=== PATIENT | female | born 2005 | race Caucasian/White ===

== ENCOUNTER 2025-06-04 12:20 | Emergency (ER) | payer SELFPAY ==
[2025-06-04 12:34] VITALS: BP 110/68; PULSE 64; RESP 16; TEMP 36.6; O2SAT 100
--- NOTE | 2025-06-04 12:45 | ED_ITS ---
HPI - Abdominal Pain General Chief Complaint: Abdominal Pain Stated Complaint: RT Side Pain Time Seen by Provider: 06/04/25 12:20 Source: patient Mode of arrival: ambulatory Limitations: no limitations History of Present Illness HPI narrative: Patient is a 20-year-old female who presents with right lower quadrant abdominal pain since yesterday. Patient has had nausea but no vomiting, diarrhea or fever. Has not taken anything for symptoms. Reports pressure in bending over helps reduce pain but standing straight up, turning or hitting bumps in the car causes more pain. Does also report urine has been bright yellow and has had frequent urination but no burning with urination or new back pain. Related Data Home Medications ?Medication ?Instructions ?Recorded ?Confirmed ?Last Taken ?Type levonorgestrel 17.5 mcg/24 hr (up 1 device intrauterine ONCE 06/04/25 06/04/25 Unknown History to 5 yrs) 19.5mg intrauterine device (Kyleena) lisdexamfetamine 10 mg capsule 10 mg PO DAILY 06/04/25 06/04/25 Unknown History (Vyvednae) semaglutide 0.25 mg or 0.5 mg (2 0.25 mg subcut WEEKLY 06/04/25 06/04/25 Unknown History mg/3 mL) subcutaneous pen injector (Ozempic) Allergies Allergy/AdvReac Type Severity Reaction Status Date / Time morphine Allergy Mild Hives Verified 06/04/25 12:38 Review of Systems Review of Systems: All systems reviewed & are unremarkable except as noted in HPI and below Constitutional: Constitutional: Denies body ache(s), Denies chills, Denies fatigue, Denies fever(s), Denies headache(s), Denies malaise and Denies weakness Eyes: Eyes: Denies blurry vision, Denies irritation and Denies loss of vision ENT: Denies otalgia, Denies headache(s), Denies nasal discharge, Denies sinus pain and Denies sore throat Cardiovascular: Cardiovascular: Denies chest pain, Denies irregular heart rhythm and Denies dyspnea Respiratory: Respiratory: Denies dyspnea Gastrointestinal: Gastrointestinal: Reports abdominal pain, Denies melena, Denies hematochezia, Denies diarrhea, Reports nausea and Denies vomiting Musculoskeletal: Musculoskeletal: Denies back pain, Denies myalgias and Denies arthralgias Integumentary/Breasts: Skin/Breast: Denies pruritus and Denies rash Neurologic: Denies headache(s), Denies loss of vision and Denies weakness Psychiatric: Psychiatric: Reports no additional psychiatric complaints Endocrine: Endocrine: Denies fatigue PMFSH Comments At time of signature, agree with nursing past medical, surgical, social and family history. There is no relevant family history pertinent to the presenting complaint. Exam Const: General: cooperative, healthy appearing, comfortable, no acute distress and well nourished Nutritional Appearance: well nourished Orientation/consciousness: patient oriented x3 Limitations: no limitations HENMT: Head: normal to inspection, normocephalic and atraumatic Ears: hearing grossly normal bilaterally and external ears normal Face/Nose/Sinus: Normal external nose present, normal facial exam and face symmetric Face and sinus: normal facial exam and face symmetric Mouth: Yes lip normal Eyes: General: appearance normal, both eyes and all related structures Alignment and Position: alignment normal and position normal Periorbital: periorbital findings normal Eyelids: eyelids normal Pupils: Equal, round and reactive pupils present EOM: EOMs intact bilaterally Neck: Neck: normal visual inspection, full ROM and supple Chest: Chest palpation & inspection: normal inspection of the chest Resp: Effort & Inspection: normal respiratory effort and able to speak in complete sentences Auscultation: clear to auscultation bilaterally Cardio: Rate: regular rate Rhythm: regular rhythm Heart sounds: S1 normal heart sound present and S2 normal heart sound present GI: Inspection: normal to inspection GI Palp: Yes abdominal tenderness, Yes Tenderness to palpation present (GI), No Guarding due to palpation present (GI) and Yes Rebound tenderness present Auscultation: normal bowel sounds Rectal Exam: deferred Skin: General skin exam: normal color and no rashes or lesions noted Neuro: General: patient oriented x3 and moves all extremities Cranial nerves: Yes Equal, round and reactive pupils present Speech: normal speech Gait exam (Neuro): Normal gait present Extrem: General: normal to inspection, full ROM and no edema Psych: Appearance: grossly normal and well kempt Mental Status: mental status grossly normal Speech and movement: Normal speech and movement present Affect: normal affect Attitude: cooperative Thought process: Normal thought process present Course Course Emergency Course: Transferred [facility] for further evaluation and workup including labs imaging to rule out appendicitis. Portions of this record may have been created with voice recognition software Level of Care: Express Care Visit Vital Signs Vital signs: Vital Signs Temperature 36.6 C 06/04/25 12:34 Pulse Rate 64 06/04/25 12:34 Respiratory Rate 16 06/04/25 12:34 Blood Pressure 110/68 06/04/25 12:34 Pulse Oximetry 100 06/04/25 12:34 Oxygen Delivery Room Air 06/04/25 12:34 Temperature 36.6 C 06/04/25 12:34 Pulse Rate 64 06/04/25 12:34 Respiratory Rate 16 06/04/25 12:34 Blood Pressure 110/68 06/04/25 12:34 Pulse Oximetry 100 06/04/25 12:34 Oxygen Delivery Room Air 06/04/25 12:34 Reviewed Transfer Transfered to: [place] Transportation: Other (Private auto) Transfer rationale: Transferred [facility] for further evaluation and workup including labs imaging to rule out appendicitis. Accepting physician: Ramakrishna JAMISON MDM - Abdominal Pain MDM Narrative Medical decision making narrative: Transferred [facility] for further evaluation and workup including labs imaging to rule out appendicitis. Differential Diagnosis Differential diagnosis: Likely abdominal pain, acute appendicitis, calculus of kidney, gastroenteritis and other (UTI) Discharge Plan Discharge Clinical Impression: Abdominal pain, right lower quadrant Patient Disposition: Acute Care Hospital Condition: Stable Patient Language: Turkish Prescriptions: No Action lisdexamfetamine [Vyvanse] 10 mg capsule 10 mg PO DAILY Ozempic 0.25 mg or 0.5 mg (2 mg/3 mL) pen injector 0.25 mg subcut WEEKLY Rx Instructions: for 4 weeks Kyleena 17.5 mcg/24 hr (5 yrs) 19.5 mg intrauterine device 1 device intrauterine ONCE Rx Instructions: as a single dose Follow-up/Referrals: PHYSICIAN,ROOFING MACHINE TENDER [Primary Care Provider] - Time of Disposition: 12:55
== END 2025-06-04 12:50 | disposition short-term general hospital (02) ==
PROVIDERS: Emergency Provider Nurse Practitioner Family
DX: R10.31 Right lower quadrant pain (principal); F90.9 Attention-deficit hyperactivity disorder, unspecified type; Z97.5 Presence of (intrauterine) contraceptive device
CPT/HCPCS: 99212; G0463

== ENCOUNTER 2025-06-04 13:15 | Emergency (ER) | payer SELFPAY ==
--- NOTE | ~2025-06-04 | US_ITS ---
EXAM: PELVIC ULTRASOUND HISTORY: Dense free fluid in the pelvis COMPARISON: None. Reference is also made to the CT examination of the abdomen and pelvis performed the same day. FINDINGS: UTERUS: 7.2 x 2.7 x 4.7cm. The endometrial complex measures 4mm. IUD in place. RIGHT OVARY: The right ovary is unremarkable in size measuring 3.9 x 2.9 x 3.3cm. Dopplerable flow is identified. Extensive free fluid in the right adnexa. 26 x 22 x 20mm focus of mixed echogenicity within the right ovary possibly a ruptured cyst. LEFT OVARY: The left ovary is unremarkable in echogenicity and size measuring 3.0 x 1.7 x 1.6 cm Dopplerable flow is identified. Extensive free fluid is identified within the right adnexa and in the posterior cul de sac. IMPRESSION: 26mm likely ruptured cyst in the right ovary with extensive free fluid within the right adnexa and th e posterior cul-de-sac. Reviewed, dictated and finalized at location A. IMPRESSION: 26mm likely ruptured cyst in the right ovary with extensive free fluid within t he right adnexa and the posterior cul-de-sac.
--- NOTE | ~2025-06-04 | CT_ITS ---
CLINICAL INDICATION: Right lower quadrant pain COMPARISON: None. TECHNIQUE: Multiple contiguous axial images of the abdomen and pelvis were performed following the ad ministration of with 100 mL Omnipaque-350 intravenous contrast The dose-length product (DLP) was 433.70 mGy-cm. Automated exposure control and iterative reconstruction technique were employed. FINDINGS/OBSERVATIONS: Visualized lower thorax: The bilateral lung bases are clear. The heart is of normal size, without pericardial effusion. Liver: The liver demonstrates homogeneous enhancement and is not enlarged. Gallbladder and biliary system: The gallbladder is only minimally distended, and otherwise unremarkable. Pancreas: The pancreas enhances homogeneously without ductal dilatation. Spleen: The spleen enhances homogeneously and is not enlarged. Kidneys: The bilateral kidneys enhance symmetrically without hydronephrosis or renal calculi. Adrenal glands: Unremarkable. Gastrointestinal tract: Fecal stasis within the colon. Appendix: The air-filled appendix is of normal caliber (axial series, images 127 through 129). Vasculature: Unremarkable. Lymph nodes: No pathologically enlarged or morphologically suspicious lymph nodes within the retroperitoneum or at the root of the mesentery. Pelvic structures: The bladder is distended, and otherwise unremarkable. The uterus is anteverted and anteflexed containing an intrauterine device in position. Dense free fluid is identified within the pelvis, right greater than left for which pelvic ultrasound is recommended. The bilateral ovaries are not visualized, secondary to the lack of intrapelvic fat. Body wall and musculoskeletal: No significant degenerative disease within the lower thoracic or lumbosacral spine. IMPRESSION: Dense free fluid within the pelvis, right greater than left for which pelvic ultrasound is recommende d. Reviewed, dictated and finalized at location A. IMPRESSION: Dense free fluid within the pelvis, right greater than left for which pelvic ul trasound is recommended.
[2025-06-04 13:26] VITALS: BP 119/55; PULSE 69; RESP 16; TEMP 36.6; O2SAT 100
--- NOTE | 2025-06-04 15:04 | ED_ITS ---
HPI - Abdominal Pain General Chief Complaint: Abdominal Pain <Jignesh Serna APRN - Last Filed: 06/04/25 15:05> Stated Complaint: abd pain <Jignesh Serna APRN - Last Filed: 06/04/25 15:05> Time Seen by Provider: 06/04/25 16:38 <Jignesh Serna APRN - Last Filed: 06/04/25 15:05> Focused HPI: 20-year-old female presents to the ER complaining of right lower quadrant pain since yesterday. Patient reports mild nausea but denies any vomiting, diarrhea, urinary symptoms, fevers, body aches, chills, difficulty breathing, pelvic pain, vaginal bleeding, vaginal discharge, or any other symptoms. Patient denies any abdominal surgeries. GENERAL: Well-appearing, well-nourished, and in no acute distress. HEAD: Normocephalic, atraumatic. CHEST: Clear to auscultation. ?No respiratory distress. HEART: Regular rate and rhythm.? NEURO: ?Alert and oriented x3. GI: Abdomen soft, nondistended. Tenderness to palpation right lower quadrant. Positive rebound tenderness. No palpable masses. Bowel sounds are active. CVA tenderness. Patient screened in triage and initial orders placed.? ?Additional care and disposition to be based upon?diagnostic testing and treatment. <Jignesh Serna APRN - Last Filed: 06/04/25 15:05> History of Present Illness HPI narrative: Agree with HPI <Geovanny Durbin MD - Last Filed: 06/04/25 18:55> Related Data Home Medications: Home Medications ?Medication ?Instructions ?Recorded ?Confirmed ?Last Taken ?Type levonorgestrel 17.5 mcg/24 hr (up 1 device intrauterine ONCE 06/04/25 06/04/25 Unknown History to 5 yrs) 19.5mg intrauterine device (Kyleena) lisdexamfetamine 10 mg capsule 10 mg PO DAILY 06/04/25 06/04/25 Unknown History (Vyvanse) semaglutide 0.25 mg or 0.5 mg (2 0.25 mg subcut WEEKLY 06/04/25 06/04/25 Unknown History mg/3 mL) subcutaneous pen injector (Ozempic) <Jignesh Serna APRN - Last Filed: 06/04/25 15:05> Allergies/Adverse Reactions: Allergies Allergy/AdvReac Type Severity Reaction Status Date / Time morphine Allergy Mild Hives Verified 06/04/25 13:28 <Jignesh Serna APRN - Last Filed: 06/04/25 15:05> Review of Systems 2 Review of Systems: All systems reviewed & are unremarkable except as noted in HPI and below <Geovanny Durbin MD - Last Filed: 06/04/25 18:55> Constitutional: Constitutional: Reports no additional constitutional complaints <Geovanny Durbin MD - Last Filed: 06/04/25 18:55> Cardiovascular: Cardiovascular: Reports no additional cardiovascular complaints <Geovanny Durbin MD - Last Filed: 06/04/25 18:55> Respiratory: Respiratory: Reports no additional respiratory complaints < Geovanny Durbin MD - Last Filed: 06/04/25 18:55> Gastrointestinal: Gastrointestinal: Reports no additional gastrointestinal complaints <Geovanny Durbin MD - Last Filed: 06/04/25 18:55> Neurologic: Reports system reviewed and no additional complaints, except as documented <Geovanny Durbin MD - Last Filed: 06/04/25 18:55> [facility] Past Medical History Medical History: Medical History (Updated 06/04/25 @ 18:54 by Geovanny Durbin MD) Healthy female adult <Jignesh Serna APRN - Last Filed: 06/04/25 15:05> Surgical History Surgical History: Surgical History (Updated 06/04/25 @ 18:07 by Geovanny Durbin MD) No history of previous surgery <Jignesh Serna APRN - Last Filed: 06/04/25 15:05> Exam 2 Narrative: GENERAL: Well-appearing, well-nourished, and in no acute distress. HEAD: Normocephalic, atraumatic. ENT: Mucous membranes moist. CHEST: Clear to auscultation. No respiratory distress. HEART: Regular rate and rhythm. Normal peripheral pulses. ABDOMEN: Soft, nontender, nondistended. EXTREMITIES: Normal range of motion. No edema. SKIN: Warm, dry, no rash. NEURO: Alert and oriented x3. PSYCH: Normal mood and affect. <Geovanny Durbin MD - Last Filed: 06/04/25 18:55> Course Course Emergency Course: Patient resting comfortably. Informed of results. Appropriate for discharge home. <Geovanny Durbin MD - Last Filed: 06/04/25 18:55> Vital Signs Vital signs: Vital Signs Temperature 97.9 F 06/04/25 13:26 Pulse Rate 69 06/04/25 13:26 Respiratory Rate 16 06/04/25 13:26 Blood Pressure 119/55 L 06/04/25 13:26 Pulse Oximetry 100 06/04/25 13:26 Oxygen Delivery Room Air 06/04/25 13:26 Temperature 97.9 F 06/04/25 13:26 Pulse Rate 69 06/04/25 13:26 Respiratory Rate 16 06/04/25 13:26 Blood Pressure 119/55 L 06/04/25 13:26 Pulse Oximetry 100 06/04/25 13:26 Oxygen Delivery Room Air 06/04/25 13:26 <Jignesh Serna APRN - Last Filed: 06/04/25 15:05> Vital Signs Temperature 97.9 F 06/04/25 13:26 Pulse Rate 69 06/04/25 13:26 Respiratory Rate 16 06/04/25 13:26 Blood Pressure 119/55 L 06/04/25 13:26 Pulse Oximetry 100 06/04/25 13:26 Oxygen Delivery Room Air 06/04/25 13:26 Temperature 97.9 F 06/04/25 13:26 Pulse Rate 69 06/04/25 13:26 Respiratory Rate 16 06/04/25 13:26 Blood Pressure 119/55 L 06/04/25 13:26 Pulse Oximetry 100 06/04/25 13:26 Oxygen Delivery Room Air 06/04/25 13:26 <Geovanny Durbin MD - Last Filed: 06/04/25 18:55> MDM - Abdominal Pain Lab Data Result diagrams: 06/04/25 15:12 06/04/25 15:12 <Jignesh Serna APRN - Last Filed: 06/04/25 15:05> Labs: Lab Results 06/04/25 Range/Units 15:12 WBC 10.1 H (4.5-10.0) K/mm3 RBC 4.40 (4.2-5.4) M/mm3 Hgb 13.0 (12.0-15.0) g/dL Hct 40.1 (37.0-47.0) % MCV 91.1 (80-100) fl MCH 29.5 (26-34) pg MCHC 32.4 (32-36) g/dl RDW 12.5 (11.5-14.5) % Plt Count 289 (150-375) k/mm3 MPV 9.3 (7.4-10.4) fl Immature Gran % (Auto) 0.4 (0-0.5) % Neut % (Auto) 62.7 (45.5-73.1) % Lymph % (Auto) 29.5 (18.3-44.2) % [place] % (Auto) 5.9 (2.6-8.5) % Eos % (Auto) 1.1 (0-4.4) % Baso % (Auto) 0.4 (0.2-1.2) % Lymph # (Auto) 2.99 (0.9-3.2) K/mm3 [place] # (Auto) 0.6 (0.1-0.6) K/mm3 Eos # (Auto) 0.1 (0-0.3) K/mm3 Baso # (Auto) 0.0 (0.0-0.1) K/mm3 Abs Immat Gran (auto) 0.04 H (0.00-0.031) K/mm3 Absolute Neuts (auto) 6.4 (1.3-6.7) K/mm3 Absolute Nucleated RBC 0.000 (0.0-0.012) K/mm3 Nucleated RBC % 0.0 (0.0-0.2) % Sodium 135 L (137-145) mmol/L Potassium 4.0 (3.4-5.0) mmol/L Chloride 101 (98-107) mmol/L Carbon Dioxide 27 (22-30) mmol/L Anion Gap 7 (4-12) mmol/L BUN 13 (7-17) mg/dL Creatinine 0.63 L (0.7-1.0) mg/dL Estim Creat Clear Calc 122 ml/min Estimated GFR > 60 (59 - ) Glucose 84 (65-110) mg/dL Calcium 9.7 (8.4-10.2) mg/dL Total Bilirubin 0.4 (0.2-1.3) mg/dL AST 22 (14-36) U/L ALT 13 (6-35) U/L Alkaline Phosphatase 55 (38-126) U/L Total Protein 7.7 (6.3-8.2) g/dL Albumin 4.5 (3.5-5.1) g/dL Lipase 51 (23-300) U/L Urine Color Yellow (Yellow) Urine Appearance Clear (Clear) Urine pH 7.5 (5.0-9.0) Ur Specific Baird 1.011 (1.001-1.035) Urine Protein Negative (Negative) mg/dL Urine Glucose (UA) Negative (Negative) mg/dL Urine Ketones Negative (Negative) mg/dL Ur Blood (Man) Negative (Negative) Urine Nitrate Negative (Negative) Urine Bilirubin Negative (Negative) Urine Urobilinogen 0.2 (<2.0) mg/dL Leukocyte Esterase Rfl Trace H (Negative) TOM/UL Urine RBC 0-2 (0-2) /hpf Urine WBC 0-5 (0-3) /hpf Ur Squamous Epith Cells Few (Few) /hpf Urine Bacteria None seen /hpf Urine Casts 0-2 POC Urine HCG, Qual Negative (Negative) <Jignesh Serna, EXTENSION COURSE COUNSELOR - Last Filed: 06/04/25 15:05> Lab Results 06/04/25 Range/Units 15:12 WBC 10.1 H (4.5-10.0) K/mm3 RBC 4.40 (4.2-5.4) M/mm3 Hgb 13.0 (12.0-15.0) g/dL Hct 40.1 (37.0-47.0) % MCV 91.1 (80-100) fl MCH 29.5 (26-34) pg MCHC 32.4 (32-36) g/dl RDW 12.5 (11.5-14.5) % Plt Count 289 (150-375) k/mm3 MPV 9.3 (7.4-10.4) fl Immature Gran % (Auto) 0.4 (0-0.5) % Neut % (Auto) 62.7 (45.5-73.1) % Lymph % (Auto) 29.5 (18.3-44.2) % [place] % (Auto) 5.9 (2.6-8.5) % Eos % (Auto) 1.1 (0-4.4) % Baso % (Auto) 0.4 (0.2-1.2) % Lymph # (Auto) 2.99 (0.9-3.2) K/mm3 [place] # (Auto) 0.6 (0.1-0.6) K/mm3 Eos # (Auto) 0.1 (0-0.3) K/mm3 Baso # (Auto) 0.0 (0.0-0.1) K/mm3 Abs Immat Gran (auto) 0.04 H (0.00-0.031) K/mm3 Absolute Neuts (auto) 6.4 (1.3-6.7) K/mm3 Absolute Nucleated RBC 0.000 (0.0-0.012) K/mm3 Nucleated RBC % 0.0 (0.0-0.2) % Sodium 135 L (137-145) mmol/L Potassium 4.0 (3.4-5.0) mmol/L Chloride 101 (98-107) mmol/L Carbon Dioxide 27 (22-30) mmol/L Anion Gap 7 (4-12) mmol/L BUN 13 (7-17) mg/dL Creatinine 0.63 L (0.7-1.0) mg/dL Estim Creat Clear Calc 122 ml/min Estimated GFR > 60 (59 - ) Glucose 84 (65-110) mg/dL Calcium 9.7 (8.4-10.2) mg/dL Total Bilirubin 0.4 (0.2-1.3) mg/dL AST 22 (14-36) U/L ALT 13 (6-35) U/L Alkaline Phosphatase 55 (38-126) U/L Total Protein 7.7 (6.3-8.2) g/dL Albumin 4.5 (3.5-5.1) g/dL Lipase 51 (23-300) U/L Urine Color Yellow (Yellow) Urine Appearance Clear (Clear) Urine pH 7.5 (5.0-9.0) Ur Specific Baird 1.011 (1.001-1.035) Urine Protein Negative (Negative) mg/dL Urine Glucose (UA) Negative (Negative) mg/dL Urine Ketones Negative (Negative) mg/dL Ur Blood (Man) Negative (Negative) Urine Nitrate Negative (Negative) Urine Bilirubin Negative (Negative) Urine Urobilinogen 0.2 (<2.0) mg/dL Leukocyte Esterase Rfl Trace H (Negative) TOM/UL Urine RBC 0-2 (0-2) /hpf Urine WBC 0-5 (0-3) /hpf Ur Squamous Epith Cells Few (Few) /hpf Urine Bacteria None seen /hpf Urine Casts 0-2 POC Urine HCG, Qual Negative (Negative) <Geovanny Durbin MD - Last Filed: 06/04/25 18:55> Imaging Data Radiologist's impression: ITS Impressions Abdomen/Pelvis CT 06/04/25 16:00 IMPRESSION: Dense free fluid within the pelvis, right greater than left for which pelvic ultrasound is recommended. Pelvic/Transvag US 06/04/25 18:14 IMPRESSION: 26mm likely ruptured cyst in the right ovary with extensive free fluid within the right adnexa and the posterior cul-de-sac. <Jignesh Serna APRN - Last Filed: 06/04/25 15:05> ITS Impressions Abdomen/Pelvis CT 06/04/25 16:00 IMPRESSION: Dense free fluid within the pelvis, right greater than left for which pelvic ultrasound is recommended. Pelvic/Transvag US 06/04/25 18:14 IMPRESSION: 26mm likely ruptured cyst in the right ovary with extensive free fluid within the right adnexa and the posterior cul-de-sac. <Geovanny Durbin MD - Last Filed: 06/04/25 18:55> Discharge Plan Discharge Clinical Impression: Ovarian cyst rupture <Jignesh Serna APRN - Last Filed: 06/04/25 15:05> Patient Disposition: Home <Jignesh Serna APRN - Last Filed: 06/04/25 15:05> Condition: Stable <Jignesh Serna APRN - Last Filed: 06/04/25 15:05> Instructions: Ruptured Ovarian Cyst (ED) <Jignesh Serna APRN - Last Filed: 06/04/25 15:05> Additional Instructions: Your pain will begin to decrease the next few days. Take Tylenol and ibuprofen to help with her discomfort. Return the ER if you have fever 100.4? F, you have worsening abdominal pain, you cannot keep down food water, or you have additional concerns. <Jignesh Serna APRN - Last Filed: 06/04/25 15:05> Patient Language: Cape Verdean <Jignesh Serna APRN - Last Filed: 06/04/25 15:05> Prescriptions: No Action lisdexamfetamine [Vyvanse] 10 mg capsule 10 mg PO DAILY Ozempic 0.25 mg or 0.5 mg (2 mg/3 mL) pen injector 0.25 mg subcut WEEKLY Rx Instructions: for 4 weeks Kyleena 17.5 mcg/24 hr (5 yrs) 19.5 mg intrauterine device 1 device intrauterine ONCE Rx Instructions: as a single dose <Jignesh Serna APRN - Last Filed: 06/04/25 15:05> Follow-up/Referrals: Jean Otero MD [Physician] - 1 Week PHYSICIAN NOT ON STAFF,NONSTAFF [Primary Care Provider] - <Jignesh Serna APRN - Last Filed: 06/04/25 15:05>
[2025-06-04 15:14] LABS: BEDSIDEPREGUCG Negative (Negative)
[2025-06-04 15:23] LABS: Hematocrit 40.1 % (37.0-47.0); Hemoglobin 13.0 g/dL (12.0-15.0); Immature Granulocyte Percent A 0.4 % (0-0.5); Lymphocytes Absolute Auto 2.99 K/mm3 (0.9-3.2); Mean Corpuscular HGB Conc 32.4 g/dl (32-36); Mean Corpuscular Hemoglobin 29.5 pg (26-34); Mean Corpuscular Volume 91.1 fl (80-100); Nucleated Red Blood Cells Absolute Auto 0.000 K/mm3 (0.0-0.012); Nucleated Red Blood Cells Perc 0.0 % (0.0-0.2); Platelet Count Result 289 k/mm3 (150-375); Red Blood Count 4.40 M/mm3 (4.2-5.4); White Blood Count 10.1 K/mm3 (4.5-10.0)
[2025-06-04 15:29] LABS: Appearance Urine Clear (Clear); Glucose Urine UA Negative (Negative); Nitrate Urine Negative (Negative); Specific Grav Ur 1.011 (1.001-1.035)
[2025-06-04 15:30] LABS: Add Urine Microscopic? YES; Leukocyte Esterase Ur Trace LEU/UL (Negative); Non Pathogenic Casts 0-2
[2025-06-04 15:36] LABS: Alanine Aminotransferase 13 U/L (6-35); Albumin Level 4.5 g/dL (3.5-5.1); Alkaline Phosphatase 55 U/L (38-126); Anion Gap 7 mmol/L (4-12); Aspartate Amino Transferase 22 U/L (14-36); Bilirubin,Total 0.4 mg/dL (0.2-1.3); Blood Urea Nitrogen 13 mg/dL (7-17); Calcium 9.7 mg/dL (8.4-10.2); Carbon Dioxide 27 mmol/L (22-30); Chloride 101 mmol/L (98-107); Estimated CRCL calculation 122 ml/min; Estimated Glomerular Filt Rate > 60; Glucose 84 mg/dL (65-110); Lipase 51 U/L (23-300); Potassium 4.0 mmol/L (3.4-5.0); Sodium 135 mmol/L (137-145); Total Protein 7.7 g/dL (6.3-8.2)
== END 2025-06-04 19:03 | disposition home or self-care (01) ==
PROVIDERS: Emergency Provider Emergency Medicine
DX: N83.201 Unspecified ovarian cyst, right side (principal); Z97.5 Presence of (intrauterine) contraceptive device; Z79.85 Long-term (current) use of injectable non-insulin antidiabetic drugs; Z79.899 Other long term (current) drug therapy
CPT/HCPCS: 36415; 74177; 76830; 76856; 80053; 81001; 81025; 83690; 85025; 99284; Q9967